=== PATIENT | female | born 1990 | race Caucasian/White ===

== ENCOUNTER 2017-03-30 09:54 | Emergency (ER) | payer BC ==
[~2017-03-30] VITALS: Ht 172.7 cm; Wt 150.0 kg
[~2017-03-30 09:54] MED LIST: ACET500C5 PO; ARIP10TA10; BENZ1TAB7; CIPR500T4 PO; METF-480 PO; NAPR-260 PO; NO NEW MEDS; ONDA4TAB14 PO; PRENAT PO; [UNRECOGNIZED DRUG - REMARK]; zoloft
[2017-03-30 09:58] VITALS: Ht 172.7 cm; Wt 150.0 kg
[2017-03-30] MEDS ORDERED: KETOROLAC 30 MG INJ IM STA (10:39)
--- NOTE | 2017-03-30 11:01 | ERD ---
ER Documentation Chief Complaint Date/Time DATE: 03/30/17 TIME: 10:58 Chief Complaint Pt with chronic back pain raditing R leg X 1 week, chronic problem. HPI This is a 26-year-old female who presents the emergency department today complaining of right-sided back pain that goes down the back of her right leg for the past week. Patient states the pain has been getting worse. States she has taken Tylenol with no improvement in symptoms. States she is concerned because at one point tender 11 years ago she had an infection in her leg. Denies any fevers or chills, loss of bowel or bladder control or dysuria. ROS All systems reviewed and are negative except as per history of present illness. Medications Home Meds Active Scripts Cyclobenzaprine Hcl* (Cyclobenzaprine Hcl*) 10 Mg Tablet, 10 MG PO QHS, #7 TAB Prov:MARTY TOSCANO PA-C 03/30/17 Naproxen* (Naprosyn*) 500 Mg Tablet, 500 MG PO BID Y for PAIN AND/OR INFLAMMATION, #30 TAB Prov:MARTY TOSCANO PA-C 03/30/17 Tramadol HCl (Tramadol HCl) 50 Mg Tablet, 50 MG PO Q4 Y for PAIN, #20 TAB Prov:MARTY TOSCANO PA-C 03/30/17 Naproxen* (Naprosyn*) 500 Mg Tablet, 500 MG PO BID Y for PAIN AND/OR INFLAMMATION, #30 TAB Prov:JORDAN LIM PA-C 01/04/17 Ondansetron (Ondansetron Odt) 4 Mg Tab.rapdis, 4 MG PO Q6H Y for NAUSEA AND/OR VOMITING, #10 TAB Prov:JORDAN LIM PA-C 01/04/17 Acetaminophen* (Tylophen*) 500 Mg Capsule, 1 CAP PO Q6H Y for PAIN AND OR ELEVATED TEMP, #20 CAP Prov:JORDAN LIM PA-C 01/04/17 Ciprofloxacin Hcl* (Ciprofloxacin Hcl*) 500 Mg Tablet, 500 MG PO BID for 5 Days , TAB Prov:JORDAN LIM PA-C 01/04/17 Reported Medications [No New Meds] No Conflict Check 10/06/12 Benztropine Mesylate* (Cogentin*) 1 Mg Tab, DAILY 09/21/12 [zoloft] No Conflict Check, DAILY 09/21/12 Aripiprazole* (Abilify*) 10 Mg Tablet, DAILY 09/21/12 [unk antibiotics] No Conflict Check 09/21/12 Allergies Allergies: Coded Allergies: No Known Allergy (Unverified , 01/04/17) PMhx/Soc History of Surgery: No Anesthesia Reaction: No Hx Neurological Disorder: No Hx Respiratory Disorders: Yes (Asthma) Hx Cardiac Disorders: No Hx Psychiatric Problems: Yes (Depression) Hx Miscellaneous Medical Probl: Yes (DM) Hx Alcohol Use: No Hx Substance Use: No Hx Tobacco Use: No Physical Exam Vitals Vital Signs Date Time Temp Pulse Resp B/P Pulse Ox O2 Delivery O2 Flow Rate FiO2 03/30/17 09:58 97.6 86 16 154/85 97 Physical Exam Const: morbidly obese, NAD Head: Atraumatic Eyes: Normal Conjunctiva ENT: Normal External Ears, Nose and Mouth. Neck: Full range of motion..~ No meningismus. Resp: Clear to auscultation bilaterally Cardio: Regular rate and rhythm, no murmurs Abd: Soft, non tender, non distended. Normal bowel sounds Skin: No petechiae or rashes Back: Lumbar spine with midline tenderness and right-sided paraspinal tenderness. No CVA tenderness. 2+. Distal neurovascularly intact. Ext: No cyanosis, or edema. No erythema or warmth. Unable to assess full active range of motion given patient's body habitus Neur: Awake and alert Psych: Normal Mood and Affect Results 24 hrs Laboratory Tests Test 03/30/17 11:41 Bedside Urine pH (LAB) 6.0 Bedside Urine Protein (LAB) 2+ Bedside Urine Glucose (UA) 0.50% Bedside Urine Ketones (LAB) Negative Bedside Urine Blood 2+ Bedside Urine Nitrite (LAB) Negative Bedside Urine Leukocyte Esterase (L Negative Current Medications Medications (Trade) Dose Ordered Sig/Lexii Route PRN Reason Start Time Stop Time Status Last Admin Dose Admin Ketorolac Tromethamine (Toradol) 30 mg ONCE STAT IM 03/30/17 10:39 03/30/17 10:41 DC 03/30/17 10:39 Acetaminophen/ Hydrocodone Bitart (Edmondson (5/325)) 1 tab ONCE ONCE PO 03/30/17 13:30 03/30/17 13:31 DIAGNOSTIC IMAGING REPORT Patient: HUI STRICKLAND : 1990 Age: 26 Sex: F MR #: [id number] DOS: 03/30/17 0000 Ordering MD: MARTY TOSCANO PA-C Location: [facility] Room/Bed: PROCEDURE: XR Lumbar Spine. CLINICAL INDICATION: pain x 1 week with radicular symptoms RLE TECHNIQUE: AP, lateral and cone-down lateral view of the lumbar spine were obtained. COMPARISON: No prior studies are available for comparison. FINDINGS: There is normal vertebral mineralization. No fracture or subluxation is seen. The disc spaces are normal in appearance. The posterior elements are unremarkable. The soft tissues appear normal. IMPRESSION: Unremarkable lumbar spine. RPTAT:AAJJ David Paulino Physician Date Time Electronically viewed and signed by David Paulino Physician on 03/30/2017 13: 03 MC/ CC: MARTY TOSCANO PA-C Procedures/MDM This is a 26-year-old female who presents the emergency department today complaining of right-sided back pain that goes down the back of her right leg for the past week that is worsening. Given that patient did have some midline tenderness and radicular symptoms I did obtain images. Also obtain a UA UA is negative for infection. There is 2+ blood. There is glucose but no ketones. Patient is a known diabetic. test is negative Per the radiology report images of the lumbar spine unremarkable. Disc spaces are normal in appearance. There is no acute fracture or dislocation. Soft tissues are normal. Symptoms at this time is consistent with back pain and likely sciatic related pain. Patient has no loss of bowel or bladder control. She is afebrile and otherwise well-appearing. I have low suspicion for cauda equina or abscess. I have low suspicion that patient has an infection in her leg. Patient was given Toradol here in the emergency department. I had intended to give the patient a short course of steroids however she does have diabetes and her blood sugars run between 300- 320 and does not appear to be well controlled and therefore do not feel would benefit the patient to give her steroids at this time. Patient was continuing to complain of pain and was therefore given Edmondson. She was also given crutches to help ambulate. Patient will be given a prescription for short course of tramadol, Naprosyn and Flexeril for home. At this time the patient is stable for discharge and outpatient management. Patient should follow up with their PCP in the next 1-2 days. They may return to the emergency department sooner for any persistent or worsening of symptoms. Patient understood and agreed with the plan. Departure Diagnosis: Primary Impression: Back pain Back pain location: low back pain Chronicity: acute Back pain laterality: right Sciatica presence: with sciatica Sciatica laterality: sciatica of right side Qualified Code: M54.41 - Acute right-sided low back pain with right -sided sciatica Condition: MARTY Nichols PA-C Mar 30, 2017 11:01
[2017-03-30 11:33] LABS: URINE BLOOD (Dip) POC 2+ (NEGATIVE)
--- NOTE | 2017-03-30 13:04 | RADRPT ---
PROCEDURE: XR Lumbar Spine. CLINICAL INDICATION: pain x 1 week with radicular symptoms RLE TECHNIQUE: AP, lateral and cone-down lateral view of the lumbar spine were obtained. COMPARISON: No prior studies are available for comparison. FINDINGS: There is normal vertebral mineralization. No fracture or subluxation is seen. The disc spaces are normal in appearance. The posterior elements are unremarkable. The soft tissues appear normal. IMPRESSION: Unremarkable lumbar spine. RPTAT:AAJJ David Paulino Physician Date Time Electronically viewed and signed by David Paulino Physician on 03/30/2017 13:03 BRAYAN/
[2017-03-30] MEDS ORDERED: CYCL-319 PO (13:10)
[2017-03-30] MEDS ORDERED: TRAM50TA2 PO (13:10)
[2017-03-30] MEDS ORDERED: NAPR-260 PO (13:10)
[2017-03-30] MEDS ORDERED: HYDROCODONE/APAP (5/325) TAB PO ONE (13:30)
== END 2017-03-30 13:30 | disposition home or self-care (01) ==
LOC: MERGE 09:54 → FTE 09:54
DX: M54.41 Lumbago with sciatica, right side (principal); J45.909 Unspecified asthma, uncomplicated; E11.9 Type 2 diabetes mellitus without complications
CPT/HCPCS: 72100; 81003; 96372; J1885; Z7502; Z7610

== ENCOUNTER 2017-11-29 08:04 | Emergency (ER) | END 2017-11-29 09:53 | disposition home or self-care (01) ==

== ENCOUNTER 2017-12-03 09:15 | Emergency (ER) | END 2017-12-03 12:15 | disposition home or self-care (01) ==

== ENCOUNTER 2018-11-14 12:46 | Emergency (ER) | payer BC ==
[~2018-11-14] VITALS: Ht 180.3 cm; Wt 141.3 kg
[~2018-11-14 12:46] MED LIST changes: +CYCL10TA7 PO; +HYDR-4011 PO; -NAPR-260 PO; +NAPR-985 PO; +TRAM50TA2 PO
[2018-11-14 13:10] VITALS: Ht 180.3 cm; Wt 141.3 kg
[2018-11-14] MEDS ORDERED: ONDANSETRON 4 MG INJ IV STA (14:06)
[2018-11-14] MEDS ORDERED: SOD CHLORIDE 0.9% 1,000 ML IV STA (14:06)
[2018-11-14] MEDS ORDERED: metFORMIN 500 MG TAB PO ONE (16:00)
[2018-11-14] MEDS ORDERED: INSULIN GLARGINE [LANTus] (100 UNITS/ML) SYG SC ONE (16:00)
[2018-11-14] MEDS ORDERED: ONDA4TAB14 PO (17:14)
[2018-11-14] MEDS ORDERED: CEPH-443 PO (17:14)
[2018-11-14 17:54] VITALS: BP 136/85; PULSE 84; RESP 12
--- NOTE | 2018-11-14 19:00 | ERD ---
ER Documentation Chief Complaint Chief Complaint Complains of abdominal pain with diarrhea x 1 week HPI 27-year-old female patient with a past medical history of diabetes, depression, hypertension presents ED complaining of abdominal pain and diarrhea that started 1 week ago. States that she has had a few episodes of non-mucoid nonbloody diarrhea. Denies any any however feels as if she is nauseous. States that she is unsure if she ate sushi about 1 week ago and still is having symptoms. Denies any chest pain, shortness of breath, wheezing. Patient reports that she is taking Januvia, gabapentin, metformin, Basaglar insulin, Wellbutrin. Denies any smoking, alcohol use, drug use. Patient reports that she she had a ayad cystectomy, in 2016. Denies any suicidal or homicidal ideations. States that she did not take her diabetic medications this morning. ROS All systems reviewed and are negative except as per history of present illness. Medications Home Meds Active Scripts Ondansetron (Ondansetron Odt) 4 Mg Tab.rapdis, 4 MG PO Q6H PRN for NAUSEA AND/OR VOMITING, #10 TAB Prov:MEG KIDD PA-C 11/14/18 Hydrocodone/Acetaminophen ([place] 5-325 Tablet) 1 Each Tablet, 1 TAB PO Q6H PRN for PAIN, #12 TAB Prov:XANDER LYLES MD 12/03/17 Naproxen* (Naprosyn*) 500 Mg Tablet, 500 MG PO BID PRN for PAIN AND/OR INFLAMMATION, #30 TAB Prov:BHUPENDRA JACKSON PA-C 11/29/17 Tramadol HCl (Tramadol HCl) 50 Mg Tablet, 50 MG PO Q4 PRN for PAIN, #10 TAB Prov:BHUPENDRA JACKSON PA-C 11/29/17 Cyclobenzaprine Hcl* (Cyclobenzaprine Hcl*) 10 Mg Tablet, 10 MG PO QHS, #7 TAB Prov:MARTY TOSCANO PA-C 03/30/17 Naproxen* (Naprosyn*) 500 Mg Tablet, 500 MG PO BID PRN for PAIN AND/OR INFLAMMATION, #30 TAB Prov:MARTY TOSCANO PA-C 03/30/17 Tramadol HCl (Tramadol HCl) 50 Mg Tablet, 50 MG PO Q4 PRN for PAIN, #20 TAB Prov:MARTY TOSCANO PA-C 03/30/17 Naproxen* (Naprosyn*) 500 Mg Tablet, 500 MG PO BID PRN for PAIN AND/OR INFLAMMATION, #30 TAB Prov:JORDAN LIM PA-C 01/04/17 Ondansetron (Ondansetron Odt) 4 Mg Tab.rapdis, 4 MG PO Q6H PRN for NAUSEA AND/OR VOMITING, #10 TAB Prov:JORDAN LIM PA-C 01/04/17 Acetaminophen* (Tylophen*) 500 Mg Capsule, 1 CAP PO Q6H PRN for PAIN AND OR ELEVATED TEMP, #20 CAP Prov:JORDAN LIM PA-C 01/04/17 Ciprofloxacin Hcl* (Ciprofloxacin Hcl*) 500 Mg Tablet, 500 MG PO BID for 5 Days, TAB Prov:JORDAN LIM PA-C 01/04/17 Reported Medications Multivit/Min/Fol Ac/Iron/Pren* ( S*) 1 Tab Tab, 1 TAB PO DAILY, TAB 09/16/15 Metformin* (Glucophage*) 850 Mg Tablet, 850 MG PO WITH BREAKFAST DINNE, #60 TAB 09/16/15 [No New Meds] No Conflict Check 10/06/12 Benztropine Mesylate* (Cogentin*) 1 Mg Tab, DAILY 09/21/12 [zoloft] No Conflict Check, DAILY 09/21/12 Aripiprazole* (Abilify*) 10 Mg Tablet, DAILY 09/21/12 [unk antibiotics] No Conflict Check 09/21/12 Allergies Allergies: Coded Allergies: No Known Allergy (Unverified , 11/29/17) PMhx/Soc History of Surgery: No Anesthesia Reaction: No Hx Neurological Disorder: No Hx Respiratory Disorders: Yes (Asthma) Hx Cardiac Disorders: No Hx Psychiatric Problems: Yes (Depression) Hx Miscellaneous Medical Probl: Yes (DM) Hx Alcohol Use: No Hx Substance Use: No Hx Tobacco Use: No Smoking Status: Never smoker FmHx Family History: No diabetes, No coronary disease Physical Exam Vitals Vital Signs Date Temp Pulse Resp B/P (MAP) Pulse Ox O2 O2 Flow FiO2 Time Delivery Rate 11/14/18 98.2 84 12 136/85 97 Room Air 17:54 (102) 11/14/18 98.7 81 16 131/93 Room Air 16:05 (106) 11/14/18 98.6 81 20 142/86 99 13:10 (104) Physical Exam Const: [id number], well-nourished. In no acute distress. Head: Atraumatic, normocephalic Eyes: Normal Conjunctiva without injection. No purulent discharge. ENT: Normal external ear, nose. Moist oropharynx without tonsillar exudates. Non-erythematous pharynx. Uvula midline. No drooling. No trismus. Neck: No cervical midline tenderness. Full range of motion. No meningismus. No cervical lymphadenopathy. No JVD. Resp: Clear to auscultation bilaterally. No wheezing, rhonchi, rales, or crackles. No accessory muscle use. No retractions. Cardio: Regular rate and rhythm. No murmurs, rubs or gallops. Abd: Soft, right upper quadrant tenderness, non distended. Normal bowel sounds. No palpable masses. No rebound tenderness. No guarding. Negative McBurney's point. Negative psoas sign. Negative obturator sign. Skin: No petechiae or rashes Back: No midline tenderness. No CVA tenderness. Ext: No cyanosis, or edema. Neur: Awake and alert. Normal gait. Normal coordination. Psych: Normal Mood and Affect Result Diagram: 11/14/18 1413 11/14/18 1413 Results 24 hrs Laboratory Tests Test 11/14/18 14:13 11/14/18 14:15 11/14/18 14:17 11/14/18 15:57 White Blood Count 8.5 10^3/ul Red Blood Count 5.00 10^6/ul Hemoglobin 13.9 g/dl Hematocrit 43.1 % Mean Corpuscular 86.2 fl Volume Mean Corpuscular 27.8 pg Hemoglobin Mean Corpuscular 32.3 g/dl Hemoglobin Concent Red Cell 12.5 % Distribution Width Platelet Count 261 10^3/UL Mean Platelet 10.4 fl Volume Immature 0.500 % Granulocytes % Neutrophils % 58.6 % Segmented 59 % Neutrophils % (Manual) Band Neutrophils % 2 % (Manual) Lymphocytes % 34.2 % Lymphocytes % 33 % (Manual) Monocytes % 4.5 % Monocytes % 3 % (Manual) Eosinophils % 1.6 % Eosinophils % 3 % (Manual) Basophils % 0.6 % Nucleated Red 0.0 /100WBC Blood Cells % Immature 0.040 10^3/ul Granulocytes # Neutrophils # 5.0 10^3/ul Neutrophils # 5.0 10^3/ul (Manual) Band Neutrophils # 0.1 10^3/ul Lymphocytes 2.8 10^3/ul (Manual) Lymphocytes # 2.9 10^3/ul Monocytes # 0.4 10^3/ul Monocytes # 0.2 10^3/ul (Manual) Eosinophils # 0.1 10^3/ul Basophils # 0.1 10^3/ul Nucleated Red 10^3/ul Blood Cells # Platelet Estimate NORMAL Anisocytosis 1+ Microcytosis 1+ Urine Color YELLOW Urine Clarity TURBID Urine pH 5.0 Urine Specific 1.028 [place] Urine Ketones NEGATIVE mg/dL Urine Nitrite NEGATIVE mg/dL Urine Bilirubin NEGATIVE mg/dL Urine Urobilinogen NEGATIVE mg/dL Urine Leukocyte 2+ Jarred/ul Esterase Urine Microscopic 0 /HPF RBC Urine Microscopic 1 /HPF WBC Urine Squamous FEW /HPF Epithelial Cells Urine Bacteria FEW /HPF Urine Hemoglobin 2+ mg/dL Urine Glucose 3+ mg/dL Urine Total 1+ mg/dl Protein Sodium Level 135 mmol/L Potassium Level 4.2 mmol/L Chloride Level 99 mmol/L Carbon Dioxide 30 mmol/L Level Anion Gap 6 Blood Urea 9 mg/dl Nitrogen Creatinine 0.47 mg/dl Est Glomerular > 60 mL/min Filtrat Rate mL/min Glucose Level 414 mg/dl Calcium Level 9.7 mg/dl Total Bilirubin 0.5 mg/dl Direct Bilirubin 0.00 mg/dl Indirect Bilirubin 0.5 mg/dl Aspartate Amino 56 IU/L Transf (AST/SGOT) Alanine 86 IU/L Aminotransferase ( ALT/SGPT) Alkaline 99 IU/L Phosphatase Total Protein 7.3 g/dl Albumin 4.0 g/dl Globulin 3.30 g/dl Albumin/Globulin 1.21 Ratio Lipase 65 U/L POC Beta HCG, NEGATIVE Qualitative Bedside Urine pH 5.5 (LAB) Bedside Urine 1+ Protein (LAB) Bedside Urine 0.50% Glucose (UA) Bedside Urine Negative Ketones (LAB) Bedside Urine 2+ Blood Bedside Urine Negative Nitrite (LAB) Bedside Urine Trace Leukocyte Esterase (L Bedside Glucose 308 mg/dL Test 11/14/18 17:38 Bedside Glucose 271 mg/dL Current Medications Medications Dose Sig/Lexii Start Time Status Last (Trade) Ordered Route PRN Stop Time Admin Dose Reason Admin Sodium 1,000 ml @ Q1H STAT 11/14/18 DC 11/14/18 Chloride 1,000 mls/hr IV 14:06 14:22 11/14/18 15:05 Ondansetron 4 mg ONCE STAT 11/14/18 DC 11/14/18 HCl (Zofran IV 14:06 14:22 Inj) 11/14/18 14:07 Metformin 1,000 mg ONCE ONCE 11/14/18 DC 11/14/18 HCl PO 16:00 16:16 (Glucophage) 11/14/18 16:01 Insulin 40 units ONCE ONCE 11/14/18 DC 11/14/18 Glargine SC 16:00 16:16 (Lantus) 11/14/18 16:01 Procedures/MDM 27-year-old female patient with a past medical history of diabetes, hypertension presents ED complaining of right upper quadrant abdominal pain. Patient is afebrile and nontoxic-appearing. Patient was further worked up with CBC, CMP, lipase, UA, urine . Patient's pain and symptoms have improved after treatment with 1 L of normal saline, 4 mg IV Zofran, CBC: No leukocytosis. No e/o of systemic infection. No e/o anemia. CMP: No e/o severe acidosis, alkalosis, renal failure, diabetic ketoacidosis, liver disease. Hyperglycemia noted -blood sugar down trended from 414 to 271 after receiving metformin and insulin glargine here in the ED which is what she normally takes in the morning. Lipase within normal limits. Urine: 2+ leukocyte esterase, no nitrites, no hematuria. Pending urine culture as patient is not complaining of any dysuria. Urine : Negative IMPRESSION: Mild hepatomegaly with fatty liver. Status post cholecystectomy. Physiologic dilatation of the CBD. Diarrhea is likely secondary to viral etiology. Patient does not have any retained stones from her previous cholecystectomy. Low suspicion for ectopic , ovarian torsion, gastritis, GERD, peptic ulcer disease, pancreatitis, appendicitis, bowel obstruction, ileus, volvulus, nephrolithiasis, pyelonephritis, hepatitis, perforated viscus, diverticulitis, strangulated/incarcerated hernia, DKA, acute abdomen, mesenteric ischemia or o ther emergent conditions. 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 Instructed patient to return to the ED sooner for any worsening symptoms. Patient's questions were answered. Patient understood and agreed with discharge plan. Patient discharged stable. Departure Diagnosis: Primary Impression: Abdominal pain Abdominal location: unspecified location Qualified Codes: R10.9 - Unspec ified abdominal pain Additional Impression: Diarrhea Diarrhea type: unspecified type Qualified Codes: R19.7 - Diarrhea, unspecified Condition: Stable Patient Instructions: Abdominal Pain, Hyperglycemia (High Blood Sugar), Diarrhea, Viral (Child) (Adult), Diet, Vomiting Or Diarrhea [6Yr-Adult], Urine Culture Referrals: [facility] YOU HAVE RECEIVED A MEDICAL SCREENING EXAM AND THE RESULTS INDICATE THAT YOU DO NOT HAVE A CONDITION THAT REQUIRES URGENT TREATMENT IN THE EMERGENCY DEPARTMENT. FURTHER EVALUATION AND TREATMENT OF YOUR CONDITION CAN WAIT UNTIL YOU ARE SEEN IN YOUR DOCTORS OFFICE WITHIN THE NEXT 1-2 DAYS. IT IS YOUR RESPONSIBILITY TO MAKE AN APPOINTMENT FOR FOLOW-UP CARE. IF YOU HAVE A PRIMARY DOCTOR --you should call your primary doctor and schedule an appointment IF YOU DO NOT HAVE A PRIMARY DOCTOR YOU CAN CALL OUR PHYSICIAN REFERRAL HOTLINE AT IF YOU CAN NOT AFFORD TO SEE A PHYSICIAN YOU CAN CHOSE FROM THE FOLLOWING [facility] CLINICS [facility] [address] [facility]. [facility] [address] [facility] [facility] [address] [facility] [facility] [address] [facility] [facility] [address] [facility]. [facility]. [address] [facility]. [facility] YOU HAVE RECEIVED A MEDICAL SCREENING EXAM AND THE RESULTS INDICATE THAT YOU DO NOT HAVE A CONDITION THAT REQUIRES URGENT TREATMENT IN THE EMERGENCY DEPARTMENT. FURTHER EVALUATION AND TREATMENT OF YOUR CONDITION CAN WAIT UNTIL YOU ARE SEEN IN YOUR DOCTORS OFFICE WITHIN THE NEXT 1-2 DAYS. IT IS YOUR RESPONSIBILITY TO MAKE AN APPOINTMENT FOR FOLOW-UP CARE. IF YOU HAVE A PRIMARY DOCTOR --you should call your primary doctor and schedule and appointment IF YOU DO NOT HAVE A PRIMARY DOCTOR YOU CAN CALL OUR PHYSICIAN REFERRAL HOTLINE AT . IF YOU CAN NOT AFFORD TO SEE A PHYSICIAN YOU CAN CHOSE FROM THE FOLLOWING [facility] INSTITUTIONS: [facility] [address] [place] [address] [facility] [address] [place], [place] [id number] [place] [address] [address] [place] [address] [facility] Additional Instructions: Your urine will be sent for a urine culture to further test for urine infection. Call your primary care doctor TOMORROW for an appointment during the next 2-3 days.See the doctor sooner or return here if your condition worsens before your appointment time. MEG KIDD PA-C November 14, 2018 19:00
== END 2018-11-14 17:57 | disposition home or self-care (01) ==
LOC: FTE 12:46
DX: R10.11 Right upper quadrant pain (principal); E11.9 Type 2 diabetes mellitus without complications; I10 Essential (primary) hypertension; R19.7 Diarrhea, unspecified; J45.909 Unspecified asthma, uncomplicated; Z79.84 Long term (current) use of oral hypoglycemic drugs
CPT/HCPCS: 36415; 76705; 80053; 81001; 81025; 82962; 83690; 85025; 87086; 96361; 96372; 96374; J1815; J2405; J7030; Z7502; Z7610; 81003